=== PATIENT | female | born 1960 | race Caucasian/White ===

== ENCOUNTER 2021-10-09 10:37 | Emergency (ER) | payer OTHER ==
[2021-10-09 12:50] LABS: BASOPHIL 0.6 % (0-2); EOSINOPHIL 1.2 % (0-5); HCT 35.5 % (37.0-47.0); HGB 11.6 g/dl (12.5-16.0); LYMPHOCYTE 16.2 % (15-48); MCH 29.1 pg (25.0-31.0); MCHC 32.7 g/dL (32.0-36.0); MONOCYTE 8.7 % (0-12); MPV 9.8 fL (6.0-9.5); NRBC 0; PLT 276 K/uL (150-400); RBC 3.99 M/uL (4.20-5.40); RDW 12.8 % (11.5-14.0)
[2021-10-09 13:06] LABS: BUN/CREAT RATIO (CALC) 20.8 RATIO; CREATININE 1.06 mg/dL (0.51-0.95); POTASSIUM 4.5 mmol/L (3.5-5.1)
[2021-10-09] MEDS ORDERED: PERCOCET 7.5/321 TAB PO (15:17)
[2021-10-09] MEDS ORDERED: ONDANSETRON ODT4 MG PO (15:17)
[2021-10-09] MEDS ORDERED: BACTRIM DS TAB1 EACH PO (15:17)
== END 2021-10-09 15:43 | disposition home or self-care (01) ==
LOC: FER 10:37
PROVIDERS: Emergency Medicine
DX: T81.49XA Infection following a procedure, other surgical site, initial encounter (principal); E11.9 Type 2 diabetes mellitus without complications
CPT/HCPCS: 36415; 73620; 80048; 85025